=== PATIENT | female | born 1965 | race Caucasian/White ===

== ENCOUNTER → 2017-04-03 | Emergency (ER) | payer BC, OTHER ==
[~2017-04-03] VITALS: Ht 167.6 cm; Wt 127.0 kg
[2017-04-03 13:03] VITALS: BP 191/122
== END | disposition home or self-care (01) ==
LOC: ER 13:06
DX: H33.22 Serous retinal detachment, left eye (principal); I10 Essential (primary) hypertension
CPT/HCPCS: 99281; A4606; Z7610; Z7502

== ENCOUNTER 2017-07-19 16:20 | Inpatient (IN) | payer BC, OTHER ==
[~2017-07-19] VITALS: Ht 167.6 cm; Wt 130.6 kg
[2017-07-19 16:40] LABS: BASOPHILS # (AUTO) 0.1 /CMM (0.0-0.2); BASOPHILS % (AUTO) 1.2 % (0.0-2.0); EOSINOPHILS % (AUTO) 1.6 % (0.0-6.0); HEMATOCRIT 40 % (33-45); HEMOGLOBIN 13.5 g/dL (11.5-14.8); LYMPHOCYTES # (AUTO) 2.3 /CMM (0.8-4.8); LYMPHOCYTES % (AUTO) 19.8 % (20.0-44.0); MEAN CORPUSCULAR HGB CONC 33 g/dl (31.0-36.0); MEAN CORPUSCULAR VOLUME 82 fL (82-100); MONOCYTES # (AUTO) 0.7 /CMM (0.1-1.30); MONOCYTES % (AUTO) 6.4 % (2.0-12.0); NEUTROPHILS # (AUTO) 8.2 /CMM (1.8-8.9); PLATELET COUNT (AUTO) 325 /CMM (150-450); RDW COEFFICIENT OF VARIATION 14.3 (11.5-15.0); RED BLOOD CELL COUNT(AUTO) 4.92 MIL/uL (4.0-5.2); WHITE BLOOD COUNT (AUTO) 11.5 K/uL (4.3-11.0)
[2017-07-19] MEDS ORDERED: NITROGLYCERIN PACKET 1 GM PACKET ONE (16:40)
[2017-07-19] MEDS ORDERED: ASPIRIN 81 MG TAB.CHEW ONE (16:40)
[2017-07-19] MEDS ORDERED: METOPROLOL TARTRATE 50 MG TABLET ONE (16:40)
[2017-07-19] MEDS ORDERED: ASPIRIN 325 MG TABLET ONE (16:42)
[2017-07-19 16:50] LABS: CARBON DIOXIDE 24 mmol/L (21-32); CHLORIDE 104 mmol/L (98-107); CREATININE 0.7 mg/dL (0.6-1.3); GLUCOSE 125 mg/dL (74-106); POTASSIUM 3.7 mmol/L (3.5-5.1); SODIUM SERUM 135 mmol/L (136-145); UREA NITROGEN, BLOOD 9 mg/dL (7-18)
[2017-07-19 16:54] LABS: INR 0.91 (0.85-1.15)
[2017-07-19 16:59] LABS: TROPONIN I < 0.017 ng/mL (0.00-0.056)
[2017-07-19] MEDS ORDERED: NITROGLYCERIN PACKET 1 GM PACKET TD ONE (17:00)
[2017-07-19] MEDS ORDERED: METOPROLOL TARTRATE 25 MG TABLET PO ONE (17:00)
[2017-07-19] MEDS ORDERED: ASPIRIN 325 MG TABLET PO ONE (17:00)
[2017-07-19] MEDS ORDERED: ONDANSETRON HCL/PF 4 MG/2 ML VIAL ONE (17:42)
[2017-07-19] MEDS ORDERED: MORPHINE SULFATE INJ 4 MG/ML DISP.SYRIN ONE (17:43)
[2017-07-19] MEDS ORDERED: IOHEXOL-350 100 ML VIAL IV ONE (17:50)
[2017-07-19] MEDS ORDERED: MORPHINE SULFATE INJ 2 MG/ML DISP.SYRIN IV ONE (18:00)
[2017-07-19] MEDS ORDERED: ONDANSETRON HCL/PF 4 MG/2 ML VIAL IVP ONE (18:00)
[2017-07-19] MEDS ORDERED: FERR325T24 PO (18:17)
[2017-07-19] MEDS ORDERED: LOSA100T15 PO (18:17)
--- NOTE | 2017-07-19 18:27 | NUR ---
WAITING FOR TELE BED
--- NOTE | 2017-07-19 18:50 | NUR ---
GOT TELE BED 316-2 [facility] PAGED
--- NOTE | 2017-07-19 19:04 | NUR ---
RECEIVED REPORT FROM MAYTE WATERS FOR ALESSANDRA.
--- NOTE | 2017-07-19 19:24 | NUR ---
PER [facility] WILL PAGE DR. ARSEN HAHN
--- NOTE | 2017-07-19 19:33 | NUR ---
DR. LEZAAM SPEAKING TO DR. ARSEN HAHN REGARDING ADMISSION
[2017-07-19 20:00] VITALS: BP 166/87
[2017-07-19 20:25] VITALS: BP 166/87
--- NOTE | 2017-07-19 20:25 | NUR ---
RN ADMITTING TELE NOTES RECEIVED PATIENT AWAKE ALERT AND ORIENTED X4 , VERBALLY RESPONSIVE, RESPIRATIONS EVEN AND UNLABORED WITH EQUAL RISE AND FALL OF CHEST, DENIES ANY SHORTNESS OF BREATH AT THIS TIME, PATIENT AMBULATORY WITH STAND BY ASSIST , PATIENT IN BED SAFE, DENIES ANY PAIN OF DISCOMFORT AT THIS TIME, RIGHT HAND IV SITE, INTACT AND PATENT, NO REDNESS , NO INFILTRATION PRESENT, BELONGINGS CHECKED, BODY ASSESSMENT DONE, SKIN INTACT, PATIENT PLACED ON STATISTICAL TYPIST SR AT 68, ORIENTED TO ROOM ,STAFF AND CALL LIGHT, CALL LIGHT KEPT WITHIN REACH, ALL NEEDS ATTENDED AT THIS TIME, WILL CONTINUE TO MONITOR, MD AWARE OF ADMISSION AWAITING ORDERS TO NOTE AND CARRY OUT.
[2017-07-19] MEDS ORDERED: IV NS 0.9% 1,000 ML IV PRN (21:26)
[2017-07-19] MEDS ORDERED: ONDANSETRON HCL/PF 4 MG/2 ML VIAL IVP PRN (21:30)
[2017-07-19] MEDS ORDERED: ZOLPIDEM TARTRATE 5 MG TABLET PO PRN (21:30)
[2017-07-19] MEDS ORDERED: HYDROCODONE/APAP 10/325MG 1 EA TABLET PO PRN (21:30)
[2017-07-19] MEDS ORDERED: HYDROCODONE/APAP 5/325MG 1 EACH TABLET PO PRN (21:30)
[2017-07-19] MEDS ORDERED: MAG HYDROX/AL HYDROX/SIMETH 30 ML UDC PO PRN (21:30)
[2017-07-19] MEDS ORDERED: MAGNESIUM HYDROXIDE 30 ML UDC PO PRN (21:30)
[2017-07-19] MEDS ORDERED: Z GUARD REMEDY 2 OZ OINT TP PRN (21:30)
[2017-07-19] MEDS: ACETAMINOPHEN 325 MG TABLET PO PRN (22:08)
--- NOTE | 2017-07-19 22:08 | NUR ---
EXTRUDER NOTES PATIENT C/O HEADACHE 6/10 TYLENOL OFFERED, AGREED TO TAKE, PRN GIVEN ORDERED. PATIENT C/O FEELING NAUSEA, PRN ZOFRAN OFFERED AND GIVEN ORDERED. WILL CONTINUE TO MONITOR.
[2017-07-19] MEDS: ENOXAPARIN SODIUM 40 MG/0.4 ML DISP.SYRIN SQ SCH (22:13)
[2017-07-19] MEDS ORDERED: hydrALAZINE HCL IV 20 MG VIAL IV PRN (23:30)
[2017-07-20] VITALS: BP 145/64
[2017-07-20] MEDS ORDERED: NITROGLYCERIN 0.4 MG/TAB BOTTLE SL PRN
[2017-07-20 04:00] VITALS: BP 121/71
[2017-07-20 06:27] LABS: BASOPHILS % (AUTO) 0.3 % (0.0-2.0); EOSINOPHILS % (AUTO) 2.1 % (0.0-6.0); HEMATOCRIT 36 % (33-45); HEMOGLOBIN 12.2 g/dL (11.5-14.8); LYMPHOCYTES # (AUTO) 2.3 /CMM (0.8-4.8); LYMPHOCYTES % (AUTO) 24.6 % (20.0-44.0); MEAN CORPUSCULAR HGB CONC 34 g/dl (31.0-36.0); MEAN CORPUSCULAR VOLUME 82 fL (82-100); MONOCYTES # (AUTO) 0.7 /CMM (0.1-1.30); MONOCYTES % (AUTO) 7.4 % (2.0-12.0); NEUTROPHILS % (AUTO) 65.6 % (43.0-81.0); PLATELET COUNT (AUTO) 278 /CMM (150-450); RDW COEFFICIENT OF VARIATION 15.3 (11.5-15.0); RED BLOOD CELL COUNT(AUTO) 4.36 MIL/uL (4.0-5.2); WHITE BLOOD COUNT (AUTO) 9.2 K/uL (4.3-11.0)
--- NOTE | 2017-07-20 06:32 | NUR ---
RN CLOSING TELE NOTES PATIENT AWAKE ALERT AND ORIENTED X4 , VERBALLY RESPONSIVE, RESPIRATIONS EVEN AND UNLABORED WITH EQUAL RISE AND FALL OF CHEST, DENIES ANY SHORTNESS OF BREATH AT THIS TIME, PATIENT AMBULATORY WITH STAND BY ASSIST , PATIENT IN BED SAFE, DENIES ANY PAIN OF DISCOMFORT AT THIS TIME, PATIENT MADE AWARE IF SHE HAS CHEST PAIN WE CAN PROVIDE NITRO ORDERED, PATIENT UNDERSTANDS NONE NEEDED AT THIS TIME,RIGHT HAND IV SITE, INTACT AND PATENT, NO REDNESS , NO INFILTRATION PRESENT, IVF FLUIDS RUNNING ORDERED, ON ART MUSEUM AIDE SR AT 63,CALL LIGHT KEPT WITHIN REACH, ALL NEEDS ATTENDED AT THIS TIME, WILL CONTINUE TO MONITOR AND ENDORSE TO NEXT SHIFT.
[2017-07-20] MEDS: PANTOPRAZOLE 40 MG TABLET.DR PO SCH (06:41)
[2017-07-20 06:56] LABS: ALBUMIN 2.6 g/dL (3.4-5.0); BILIRUBIN,TOTAL 0.2 mg/dL (0.2-1.0); CALCIUM, SERUM 8.3 mg/dL (8.5-10.1); CREATININE 0.7 mg/dL (0.6-1.3); MAGNESIUM 1.8 mg/dL (1.8-2.4); PHOSPHORUS 3.9 mg/dL (2.5-4.9); POTASSIUM 4.1 mmol/L (3.5-5.1); TOTAL PROTEIN, SERUM 6.8 g/dL (6.4-8.2)
[2017-07-20 07:07] LABS: THYROID STIMULATING HORMONE 2.834 uIU/mL (0.358-3.74)
[2017-07-20 07:54] VITALS: BP 133/77
--- NOTE | 2017-07-20 08:00 | NUR ---
Tele/RN - Assessment Patient awake, A/O x 4, denies chest pain, no evidence of resp distress noted, tele shows SR, troponin x 3 were all negative. IVF NS at 75 ml/hr infusing well on the right hand with no s/s of infiltration. Skin is intact. Patient independent with bed mobility. All needs attended and met. Safety measures in place. Awaiting for cardio and neuro consult. Will continue with current plan of care.
--- NOTE | 2017-07-20 08:20 | NUR ---
Tele/RN - Md Castillo (Cardio) Seen and examined by Dr. Mazariegos with order for lexiscan stress test today. Patient was placed on NPO since midnight. Consent for lexiscan stress test signed by the patient.
[2017-07-20] MEDS: ASPIRIN 325 MG TABLET PO SCH (08:31)
[2017-07-20] MEDS: FERROUS SULFATE (325 MG) 325 MG/TAB TABLET PO SCH (08:31)
[2017-07-20] MEDS: METOPROLOL TARTRATE 25 MG TABLET PO SCH ×2 (08:31→14:40)
[2017-07-20] MEDS ORDERED: Medication Not On Formulary EA (Losartan Potassium 100 MG) PO SCH (09:00)
[2017-07-20] MEDS ORDERED: REGADENOSON 0.4 MG/5 ML DISP.SYRIN IVP ONE (11:17)
--- NOTE | 2017-07-20 14:00 | NUR ---
M/S RN - Notes Telemetry discontinued, Lexiscan stress test completed, per Dr. Mazariegos, if stress test is negative cleared for discharge home today. Patient and updated on discharge plan.
[2017-07-20] MEDS: ACETAMINOPHEN 325 MG TABLET PO PRN (14:37)
[2017-07-20 16:57] VITALS: BP 150/83
--- NOTE | 2017-07-20 17:47 | NUR ---
M/S RN CLOSING NOTES Patient in bed, resting comfortably. A&O x4. Family member at bedside. No complaints of pain at this moment. Not in any type of distress. No SOB noted. No chest pain noted or reported. Lexiscan stress test was negative. CT Head w/o contrast is normal. Possible discharge home tomorrow if continues to remain stable. Safety measures in place. Bed in lowest position with call light within reach. Will continue with current medical management and endorse to oncoming nurse.
--- NOTE | 2017-07-20 19:30 | NUR ---
RN NOTES RECEIVED PT. AWAKE ON BED, A/OX4, AMBULATORY, DENIES PAIN, NO SOB, WAITING FOR DR. HOLLIS FRIED TO BE DISCHARGE. CALL LIGHT WITHIN REACH, [id number], WILL CONTINUE TO MONITOR
[2017-07-20 20:00] VITALS: BP 141/80
[2017-07-20] MEDS: ENOXAPARIN SODIUM 40 MG/0.4 ML DISP.SYRIN SQ SCH (21:39)
[2017-07-20] MEDS ORDERED: ATORVASTATIN 40 MG TABLET PO SCH (22:00)
--- NOTE | 2017-07-21 06:25 | NUR ---
RN NOTES SLEEPING BUT AROUSABLE, DENIES PAIN, NO SOB, MORNING CARE RENDERED, PT. NEEDS ATTENDED
[2017-07-21 08:00] VITALS: BP_SYST 117; BP_SYST 155; BP_DIAS 82; BP_DIAS 83
--- NOTE | 2017-07-21 08:00 | NUR ---
RN NOTES RECEIVED PATIENT IN THE BED A/O X4, PATIENT STABLE, NO ACTE RESPIRATORY DISTRESS, NO COMPLAINING OF CHEST PAIN. V/S TAKEN AND FOLLOWED AT. PATIENT TAKE SCHEDULED MEDICATION. PATIENT AMBULATORY SELF CARE. IV ACCESS ON RIGHT FA INTACT. NEEDS ATTENDED ADD ANTICIPATED, CALL LIGHT WITHIN TO REACH. JUAN UED MONITORING.
[2017-07-21] MEDS: ASPIRIN 325 MG TABLET PO SCH (08:14)
[2017-07-21] MEDS: PANTOPRAZOLE 40 MG TABLET.DR PO SCH (08:14)
[2017-07-21] MEDS: METOPROLOL TARTRATE 25 MG TABLET PO SCH (08:15)
[2017-07-21] MEDS: FERROUS SULFATE (325 MG) 325 MG/TAB TABLET PO SCH (08:15)
[2017-07-21 08:17] VITALS: BP 155/83
[2017-07-21] MEDS ORDERED: VALSARTAN 80 MG TABLET PO SCH (09:00)
--- NOTE | 2017-07-21 09:30 | NUR ---
RN NOTES RECHECKED V/S BP - 133/ 72, P-68, NO ACUTE DISTRESS. PATIENT WILL D/C HOME PER CHEN FRIED. CONTINUED MONITORING.
--- NOTE | 2017-07-21 13:58 | NUR ---
DISCHARGE NOTES PATIENT DISCHARGE AT THIS TIME GOING HOME. PATIENT MED COMPLIANT, NO COMPLAINING OF PAIN, MEDICALLY STABLE. IV ACCESS REMOVE, D/C EDUCATION PROVIDED TO THE PATIENT. PATIENT WILL FOLLOW PRIMARY MD. PATIENT VERBALIZED UNDERSTANDING. PATIENT HAS HER BELONGING, PAPERWORK SIGNED. 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
== END 2017-07-21 13:46 | disposition home or self-care (01) | DRG 205 ==
LOC: ER 16:22 → TELE 19:52 → MED 07-20 13:17
PROVIDERS: ADMIT Hospitalist; ATTEND Hospitalist
DX: M94.0 Chondrocostal junction syndrome [Tietze] (principal); E43 Unspecified severe protein-calorie malnutrition; E87.1 Hypo-osmolality and hyponatremia; Z68.42 Body mass index [BMI] 45.0-49.9, adult; E66.01 Morbid (severe) obesity due to excess calories; D72.829 Elevated white blood cell count, unspecified; E83.51 Hypocalcemia; I10 Essential (primary) hypertension; Z91.14 Patient's other noncompliance with medication regimen; Z90.49 Acquired absence of other specified parts of digestive tract; R73.9 Hyperglycemia, unspecified; G47.33 Obstructive sleep apnea (adult) (pediatric); R20.0 Anesthesia of skin; M54.12 Radiculopathy, cervical region; Z98.51 Tubal ligation status
CPT/HCPCS: 36415; 70450-TC; 71045-TC; 80048-TC; 80053-TC; 80061-TC; 80305; 82306; 82728-TC; 83540-TC; 83735-TC; 84100-TC; 84439-TC; 84443-TC; 84484-TC; 85025-TC; 85730-TC; 87081-TC; 93307-TC; A4606; A9502; J1650; J2270; J2405; J2785; J7030; Q9967; Z7610

== ENCOUNTER 2017-07-31 13:07 | Outpatient (CLI) | payer BC ==
[~2017-07-31 13:07] MED LIST: FERR325T24 PO; LOSA100T15 PO
[2017-07-31 13:16] VITALS: BP 131/81
== END 2017-07-31 23:59 | disposition home or self-care (01) ==
LOC: MSC 13:07
PROVIDERS: ATTEND Internal Medicine
DX: M54.12 Radiculopathy, cervical region (principal); R07.89 Other chest pain; E66.01 Morbid (severe) obesity due to excess calories; I10 Essential (primary) hypertension; R73.03 Prediabetes; E44.0 Moderate protein-calorie malnutrition; E88.09 Other disorders of plasma-protein metabolism, not elsewhere classified; Z90.49 Acquired absence of other specified parts of digestive tract; Z98.51 Tubal ligation status

== ENCOUNTER 2017-11-02 13:24 | Outpatient (CLI) | payer OTHER ==
[2017-11-02 13:55] VITALS: BP 162/96
== END 2017-11-02 23:59 | disposition home or self-care (01) ==
LOC: MSC 13:24
PROVIDERS: ATTEND Internal Medicine
DX: F07.81 Postconcussional syndrome (principal); S40.012D Contusion of left shoulder, subsequent encounter; S80.02XD Contusion of left knee, subsequent encounter; W19.XXXD Unspecified fall, subsequent encounter; R26.2 Difficulty in walking, not elsewhere classified; E66.01 Morbid (severe) obesity due to excess calories; I10 Essential (primary) hypertension

== ENCOUNTER 2018-11-01 15:26 | Emergency (ER) | payer BC, OTHER ==
[~2018-11-01] VITALS: Ht 170.2 cm; Wt 131.5 kg
[~2018-11-01 15:26] MED LIST changes: -LOSA100T15 PO; +LOSA100T31 PO
--- NOTE | 2018-11-01 15:45 | NUR ---
PT PRESENTS TO ER C/O CHEST PAIN/PRESSURE WITH HYPERTENSION AND SOB. 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 RESP SLIGHTLY LABORED. PT APPEARS FLUSHED BUT SKIN WARM DRY. 7/10 PAIN. TOOK ROUTINE LOSARTAN AT 1100. IN ER BED 08 ON MONITOR.
[2018-11-01] MEDS ORDERED: ONDANSETRON HCL/PF 4 MG/2 ML VIAL ONE (15:46)
[2018-11-01] MEDS ORDERED: LABETALOL HCL IV 100MG VIAL ONE (15:46)
[2018-11-01] MEDS ORDERED: ASPIRIN 81 MG TAB.CHEW ONE (15:47)
[2018-11-01 15:49] LABS: BASOPHILS # (AUTO) 0.1 /CMM (0.0-0.2); BASOPHILS % (AUTO) 0.7 % (0.0-2.0); EOSINOPHILS % (AUTO) 2.6 % (0.0-6.0); HEMATOCRIT 42 % (33-45); HEMOGLOBIN 13.7 g/dL (11.5-14.8); LYMPHOCYTES # (AUTO) 2.6 /CMM (0.8-4.8); LYMPHOCYTES % (AUTO) 30.6 % (20.0-44.0); MEAN CORPUSCULAR HGB CONC 33 g/dl (31.0-36.0); MEAN CORPUSCULAR VOLUME 83 fL (82-100); MONOCYTES # (AUTO) 0.7 /CMM (0.1-1.30); MONOCYTES % (AUTO) 7.8 % (2.0-12.0); NEUTROPHILS # (AUTO) 4.9 /CMM (1.8-8.9); NEUTROPHILS % (AUTO) 58.3 % (43.0-81.0); PLATELET COUNT (AUTO) 315 /CMM (150-450); RED BLOOD CELL COUNT(AUTO) 5.05 MIL/uL (4.0-5.2); WHITE BLOOD COUNT (AUTO) 8.4 K/uL (4.3-11.0)
[2018-11-01 15:56] LABS: CALCIUM, SERUM 8.8 mg/dL (8.5-10.1); CARBON DIOXIDE 25 mmol/L (21-32); CHLORIDE 105 mmol/L (98-107); CREATININE 0.7 mg/dL (0.6-1.3); GLUCOSE 134 mg/dL (74-106); POTASSIUM 3.7 mmol/L (3.5-5.1); SODIUM SERUM 141 mmol/L (136-145); UREA NITROGEN, BLOOD 9 mg/dL (7-18)
[2018-11-01] MEDS ORDERED: LABETALOL HCL IV 100MG VIAL IV ONE (16:00)
[2018-11-01] MEDS ORDERED: ASPIRIN 81 MG TAB.CHEW PO ONE (16:00)
[2018-11-01] MEDS ORDERED: ONDANSETRON HCL/PF 4 MG/2 ML VIAL IVP ONE (16:00)
--- NOTE | 2018-11-01 17:28 | NUR ---
CALLED DR ALLRED
--- NOTE | 2018-11-01 18:19 | NUR ---
RESTING COMFORTABLY. ALL NEEDS ATTENDED TO.
--- NOTE | 2018-11-01 19:16 | NUR ---
REPORT GIVEN TO MARLENE HU FOR ALESSANDRA. REPEAT TROPONIN DRAWN.
--- NOTE | 2018-11-01 19:18 | NUR ---
PT RECEIVED FROM MAYTE MEZA FOR ALESSANDRA. PT IN BED AAOX4. NO RESP DISTRESS. LAB AT BEDSIDE FOR REPEAT TROPONIN DRAW.
[2018-11-01 20:55] VITALS: BP 150/75
--- NOTE | 2018-11-01 20:55 | NUR ---
Patient discharged to home in stable condition. Written and verbal after care instructions given. Patient verbalizes understanding of instruction.IV removed. Catheter intact and site benign. Pressure and 4x4 applied to site. No bleeding noted. Pt ambulatory with a steady gait
== END 2018-11-01 20:35 | disposition home or self-care (01) ==
LOC: ER 15:27
DX: R07.89 Other chest pain (principal); I10 Essential (primary) hypertension; R42 Dizziness and giddiness; E66.01 Morbid (severe) obesity due to excess calories; Z68.42 Body mass index [BMI] 45.0-49.9, adult; Z98.890 Other specified postprocedural states; Z90.49 Acquired absence of other specified parts of digestive tract; Z98.51 Tubal ligation status
CPT/HCPCS: 36415; 71045; 80048; 84484 ×2; 85025; 93005 ×2; 96374; 96375; 99284; J2405; J3490

== ENCOUNTER 2020-01-10 07:30 | Outpatient (CLI) | payer BC, OTHER ==
[~2020-01-10 07:30] MED LIST changes: -FERR325T24 PO
[2020-01-10 09:46] LABS: ALBUMIN 3.3 g/dL (3.4-5.0); BASOPHILS % (AUTO) 0.4 % (0.0-2.0); BILIRUBIN,TOTAL 0.2 mg/dL (0.2-1.0); CALCIUM, SERUM 8.9 mg/dL (8.5-10.1); CREATININE 0.7 mg/dL (0.6-1.3); EOSINOPHILS % (AUTO) 1.9 % (0.0-6.0); HEMATOCRIT 44 % (33-45); HEMOGLOBIN 14.1 g/dL (11.5-14.8); LYMPHOCYTES # (AUTO) 2.2 /CMM (0.8-4.8); LYMPHOCYTES % (AUTO) 28.7 % (20.0-44.0); MEAN CORPUSCULAR HGB CONC 32 g/dl (31.0-36.0); MEAN CORPUSCULAR VOLUME 86 fL (82-100); MONOCYTES # (AUTO) 0.6 /CMM (0.1-1.30); MONOCYTES % (AUTO) 7.4 % (2.0-12.0); NEUTROPHILS # (AUTO) 4.7 /CMM (1.8-8.9); NEUTROPHILS % (AUTO) 61.6 % (43.0-81.0); PLATELET COUNT (AUTO) 302 /CMM (150-450); POTASSIUM 3.9 mmol/L (3.5-5.1); RED BLOOD CELL COUNT(AUTO) 5.15 MIL/uL (4.0-5.2); TOTAL PROTEIN, SERUM 8.3 g/dL (6.4-8.2); WHITE BLOOD COUNT (AUTO) 7.7 K/uL (4.3-11.0)
[2020-01-10 09:57] LABS: FREE T4 (FREE THYROXINE) 1.06 ng/dL (0.76-1.46); THYROID STIMULATING HORMONE 2.277 uIU/mL (0.358-3.74)
[2020-01-10 11:05] LABS: BILIRUBIN,URINE NEGATIVE (NEGATIVE); BLOOD, URINE NEGATIVE Ery/uL (NEGATIVE); LEUKOCYTE ESTERASE ,URINE NEGATIVE (NEGATIVE); NITRITE, URINE POSITIVE (NEGATIVE); PH,URINE 5.5 (5.0-8.0); PROTEIN,URINE NEGATIVE (NEGATIVE); UGLUCOSE NEGATIVE (NEGATIVE); UROBILINOGEN,URINE 0.2 EU/dL (0.2)
[2020-01-10 11:07] LABS: COLOR,URINE YELLOW (YELLOW)
[2020-01-10 11:37] LABS: BACTERIA,URINE Few /HPF (None Seen); RBC,URINE NONE SEEN /HPF (0-2); SQUAMOUS EPITHELIAL CELL,UR Few /HPF (None Seen); WBC,URINE 0-2 /HPF (0-3)
== END 2020-01-10 23:59 | disposition home or self-care (01) ==
LOC: LAB 07:30
PROVIDERS: ATTEND Family Medicine
DX: R22.0 Localized swelling, mass and lump, head (principal); Z00.01 Encounter for general adult medical examination with abnormal findings
CPT/HCPCS: 36415; 70250-TC; 80053-TC; 80061-TC; 81001; 82306; 84439-TC; 84443-TC; 85025-TC; 86803; 87086-TC

== ENCOUNTER 2020-03-04 07:33 | Outpatient (CLI) | payer BC, OTHER | END 2020-03-04 23:59 | disposition home or self-care (01) | LOC: CT 07:33 | PROVIDERS: ATTEND Family Medicine | DX: P13.1 Other birth injuries to skull (principal) | CPT/HCPCS: 70450-TC ==

== ENCOUNTER 2021-05-06 07:17 | Emergency (ER) | payer BC, OTHER ==
[~2021-05-06] VITALS: Ht 170.2 cm; Wt 113.4 kg
[2021-05-06 07:27] VITALS: BP 129/84
--- NOTE | 2021-05-06 07:41 | NUR ---
AT BEDSIDE FOR EVAL.
[2021-05-06] MEDS ORDERED: AMOX-430 PO (08:11)
--- NOTE | 2021-05-06 08:19 | NUR ---
Patient discharged to home in stable condition. Written and verbal after care instructions given. Patient verbalizes understanding of instruction.
== END 2021-05-06 08:21 | disposition home or self-care (01) ==
LOC: ER 07:24
DX: J32.1 Chronic frontal sinusitis (principal); J06.9 Acute upper respiratory infection, unspecified; I10 Essential (primary) hypertension; Z90.49 Acquired absence of other specified parts of digestive tract; Z98.890 Other specified postprocedural states; Z79.899 Other long term (current) drug therapy

== ENCOUNTER 2022-03-17 15:03 | Emergency (ER) | payer BC, OTHER ==
[~2022-03-17] VITALS: Ht 170.2 cm; Wt 147.4 kg
[~2022-03-17 15:03] MED LIST changes: +AMOX-430 PO
--- NOTE | 2022-03-17 15:11 | NUR ---
BIBS STATING THAT WHILE AT WORK SHE WAS REGISTERRING A PT AND LOST CONTROL OF HER R HAND AND DIEGO NUMBED. PT ATTACHED TO MONITOR, NO RESPIRATORY DISTRESS NOTED. PT CURRENTLY HAS NO SIGNIFICANT DRIFT IN EXTREMITIES, OR FACIAL DROOP. AWAITING MD EDWARDS.
[2022-03-17] MEDS ORDERED: ACETAMINOPHEN ES 500 MG TABLET PO ONE (15:30)
[2022-03-17] MEDS ORDERED: IV NS 0.9% 1,000 ML BAG IV ONE (15:30)
[2022-03-17 15:38] LABS: BASOPHILS % (AUTO) 0.2 % (0.0-2.0); HEMATOCRIT 45 % (33-45); HEMOGLOBIN 14.5 g/dL (11.5-14.8); LYMPHOCYTES # (AUTO) 3.5 K/uL (0.8-4.8); LYMPHOCYTES % (AUTO) 33.9 % (20.0-44.0); MEAN CORPUSCULAR HGB CONC 33 g/dl (31.0-36.0); MEAN CORPUSCULAR VOLUME 85 fL (82-100); MONOCYTES # (AUTO) 0.9 K/uL (0.1-1.30); MONOCYTES % (AUTO) 8.8 % (2.0-12.0); NEUTROPHILS # (AUTO) 5.8 K/uL (1.8-8.9); NEUTROPHILS % (AUTO) 55.1 % (43.0-81.0); PLATELET COUNT (AUTO) 331 K/uL (150-450); RED BLOOD CELL COUNT(AUTO) 5.24 MIL/uL (4.0-5.2); WHITE BLOOD COUNT (AUTO) 10.5 K/uL (4.3-11.0)
[2022-03-17 15:59] LABS: ALANINE AMINOTRANSFERASE 36 U/L (12-78); ALBUMIN 3.4 g/dL (3.4-5.0); ALKALINE PHOSPHATASE 124 U/L (46-116); ASPARTATE AMINOTRANSFERASE 29 U/L (15-37); BILIRUBIN,DIRECT 0.1 mg/dL (0.0-0.2); BILIRUBIN,TOTAL 0.3 mg/dL (0.2-1.0); CALCIUM, SERUM 8.8 mg/dL (8.5-10.1); CARBON DIOXIDE 27 mmol/L (21-32); CHLORIDE 104 mmol/L (98-107); CREATININE 0.8 mg/dL (0.6-1.3); GLUCOSE 81 mg/dL (74-106); LIPASE 178 U/L (73-393); POTASSIUM 3.5 mmol/L (3.5-5.1); SODIUM SERUM 140 mmol/L (136-145); TOTAL PROTEIN, SERUM 8.4 g/dL (6.4-8.2); UREA NITROGEN, BLOOD 9 mg/dL (7-18)
[2022-03-17 16:56] VITALS: BP 174/94
--- NOTE | 2022-03-17 16:56 | NUR ---
IV removed. Catheter intact and site benign. Pressure and 4x4 applied to site. No bleeding noted.Patient discharged to home in stable condition. Written and verbal after care instructions given. Patient verbalizes understanding of instruction.
[2022-03-17] MEDS ORDERED: ACETAMINOPHEN ES 500 MG TABLET ONE (21:48)
== END 2022-03-17 16:56 | disposition home or self-care (01) ==
LOC: ER 15:05
DX: R20.2 Paresthesia of skin (principal); I10 Essential (primary) hypertension; Z90.49 Acquired absence of other specified parts of digestive tract
CPT/HCPCS: 36415; 70450-TC; 71045-TC; 80048-TC; 80076-TC; 82962-TC; 83690-TC; 84484-TC; 85025-TC

== ENCOUNTER → 2022-03-30 | Outpatient (CLI) | payer BC, OTHER | END | disposition home or self-care (01) | LOC: RAD 08:46 | PROVIDERS: ATTEND Family Medicine | DX: M19.021 Primary osteoarthritis, right elbow (principal); M25.521 Pain in right elbow | CPT/HCPCS: 73080-TC ==

== ENCOUNTER 2022-08-03 07:36 | Outpatient (CLI) | payer BC, OTHER ==
[2022-08-03 09:36] LABS: BASOPHILS % (AUTO) 0.5 % (0.0-2.0); BILIRUBIN,URINE NEGATIVE (NEGATIVE); COLOR,URINE YELLOW (YELLOW); EOSINOPHILS % (AUTO) 2.1 % (0.0-6.0); HEMATOCRIT 44 % (33-45); HEMOGLOBIN 14.2 g/dL (11.5-14.8); LEUKOCYTE ESTERASE ,URINE NEGATIVE (NEGATIVE); LYMPHOCYTES # (AUTO) 2.1 K/uL (0.8-4.8); LYMPHOCYTES % (AUTO) 29.9 % (20.0-44.0); MEAN CORPUSCULAR HGB CONC 32 g/dl (31.0-36.0); MEAN CORPUSCULAR VOLUME 86 fL (82-100); MONOCYTES # (AUTO) 0.5 K/uL (0.1-1.30); MONOCYTES % (AUTO) 6.6 % (2.0-12.0); NEUTROPHILS # (AUTO) 4.3 K/uL (1.8-8.9); NEUTROPHILS % (AUTO) 60.9 % (43.0-81.0); NITRITE, URINE POSITIVE (NEGATIVE); PLATELET COUNT (AUTO) 296 K/uL (150-450); PROTEIN,URINE NEGATIVE (NEGATIVE); RED BLOOD CELL COUNT(AUTO) 5.11 MIL/uL (4.0-5.2); UGLUCOSE NEGATIVE (NEGATIVE); UROBILINOGEN,URINE 0.2 EU/dL (0.2)
[2022-08-03 09:57] LABS: BACTERIA,URINE Moderate /HPF (None Seen); RBC,URINE 0-2 /HPF (0-2); SQUAMOUS EPITHELIAL CELL,UR Few /HPF (None Seen)
[2022-08-03 10:21] LABS: FREE T4 (FREE THYROXINE) 1.06 ng/dL (0.76-1.46); THYROID STIMULATING HORMONE 2.407 uIU/mL (0.358-3.74); URIC ACID 3.7 mg/dL (2.6-7.2)
[2022-08-03 10:28] LABS: ALBUMIN 3.5 g/dL (3.4-5.0); BILIRUBIN,TOTAL 0.3 mg/dL (0.2-1.0); CREATININE 0.7 mg/dL (0.6-1.3); MAGNESIUM 1.9 mg/dL (1.8-2.4); POTASSIUM 3.7 mmol/L (3.5-5.1); TOTAL PROTEIN, SERUM 8.3 g/dL (6.4-8.2)
== END 2022-08-03 23:59 | disposition home or self-care (01) ==
LOC: CARD 07:36
PROVIDERS: ATTEND Family Medicine
DX: M79.604 Pain in right leg (principal); M79.605 Pain in left leg; R79.9 Abnormal finding of blood chemistry, unspecified; I10 Essential (primary) hypertension
CPT/HCPCS: 36415; 80053-TC; 80061-TC; 81001; 82306; 82607-TC; 82728-TC; 83540-TC; 83735-TC; 84439-TC; 84443-TC; 84481; 84550-TC; 85025-TC; 87086-TC; 93970-TC

== ENCOUNTER 2022-08-12 09:06 | Outpatient (CLI) | payer BC, OTHER ==
[2022-08-12 11:05] LABS: ALBUMIN 3.4 g/dL (3.4-5.0); BILIRUBIN,TOTAL 0.2 mg/dL (0.2-1.0); CALCIUM, SERUM 8.9 mg/dL (8.5-10.1); CREATININE 0.7 mg/dL (0.6-1.3); POTASSIUM 3.9 mmol/L (3.5-5.1); TOTAL PROTEIN, SERUM 7.8 g/dL (6.4-8.2)
== END 2022-08-12 23:59 | disposition home or self-care (01) ==
LOC: US 09:06
PROVIDERS: ATTEND Family Medicine
DX: K76.0 Fatty (change of) liver, not elsewhere classified (principal); R94.5 Abnormal results of liver function studies; R16.1 Splenomegaly, not elsewhere classified; R10.9 Unspecified abdominal pain; Z90.49 Acquired absence of other specified parts of digestive tract
CPT/HCPCS: 76700-TC; 80053-TC; 86709-TC; 87340

== ENCOUNTER 2023-08-07 15:53 | Emergency (ER) | payer BC, OTHER ==
[~2023-08-07] VITALS: Ht 172.7 cm; Wt 137.9 kg
[2023-08-07 15:54] VITALS: TEMP 98.4
[2023-08-07] MEDS ORDERED: ONDANSETRON HCL/PF 4 MG/2 ML VIAL ONE (16:26)
[2023-08-07] MEDS ORDERED: HYDROCORTISONE 2.5% CREAM 28.4 GM TUBE TP SCH (16:30)
[2023-08-07] MEDS: IV NS 0.9% 1,000 ML BAG IV ONE (16:40)
[2023-08-07] MEDS: ONDANSETRON HCL/PF 4 MG/2 ML VIAL IVP ONE (16:40)
[2023-08-07 16:58] LABS: BASOPHILS % (AUTO) 0.3 % (0.0-2.0); EOSINOPHILS # (AUTO) 0.2 K/uL (0.0-0.7); HEMATOCRIT 42 % (33-45); HEMOGLOBIN 13.8 g/dL (11.5-14.8); LYMPHOCYTES # (AUTO) 2.6 K/uL (0.8-4.8); LYMPHOCYTES % (AUTO) 27.4 % (20.0-44.0); MEAN CORPUSCULAR HEMOGLOBIN 29 PG (26.0-33.0); MEAN CORPUSCULAR HGB CONC 33 g/dl (31.0-36.0); MEAN CORPUSCULAR VOLUME 87 fL (82-100); MONOCYTES # (AUTO) 0.7 K/uL (0.1-1.30); MONOCYTES % (AUTO) 6.9 % (2.0-12.0); NEUTROPHILS % (AUTO) 63.4 % (43.0-81.0); PLATELET COUNT (AUTO) 292 K/uL (150-450); RED BLOOD CELL COUNT(AUTO) 4.85 MIL/uL (4.0-5.2); RED CELL DISTRIBUTION WIDTH 14.9 % (11.5-15.0); WHITE BLOOD COUNT (AUTO) 9.5 K/uL (4.3-11.0)
[2023-08-07] MEDS: HYDROCORTISONE 2.5% CREAM 28.4 GM TUBE TP SCH (17:00)
[2023-08-07 17:01] LABS: APPEARANCE,URINE CLEAR (CLEAR); BILIRUBIN,URINE 1+ (NEGATIVE); BLOOD, URINE 2+ Ery/uL (NEGATIVE); COLOR,URINE YELLOW (YELLOW); KETONES,URINE TRACE mg/dL (NEGATIVE); LEUKOCYTE ESTERASE ,URINE NEGATIVE (NEGATIVE); NITRITE, URINE NEGATIVE (NEGATIVE); PROTEIN,URINE TRACE mg/dl (NEGATIVE); UGLUCOSE NEGATIVE (NEGATIVE); UROBILINOGEN,URINE 0.2 EU/dL (0.2)
[2023-08-07 17:10] LABS: CALCIUM, SERUM 9.2 mg/dL (8.5-10.1); CREATININE 0.8 mg/dL (0.6-1.3); POTASSIUM 3.4 mmol/L (3.5-5.1)
[2023-08-07 17:20] LABS: ADD URINE CULTURE NO; BACTERIA,URINE 1+ /HPF (None Seen)
[2023-08-07 17:20] LABS: ALBUMIN 3.2 g/dL (3.4-5.0); BILIRUBIN,DIRECT 0.2 mg/dL (0.0-0.2); BILIRUBIN,TOTAL 0.3 mg/dL (0.2-1.0); TOTAL PROTEIN, SERUM 8.1 g/dL (6.4-8.2)
[2023-08-07] MEDS ORDERED: HYDR30CR99 RC (17:41)
[2023-08-07 17:51] VITALS: BP 140/83; O2SAT 100
== END 2023-08-07 17:49 | disposition home or self-care (01) ==
LOC: ER 15:57
DX: R19.7 Diarrhea, unspecified (principal); K62.89 Other specified diseases of anus and rectum; I10 Essential (primary) hypertension; Z90.49 Acquired absence of other specified parts of digestive tract
CPT/HCPCS: 99283; 96374; 96361; 85025; 80048; 83690; 80076; 81001; 36415; J2405; J7030

== ENCOUNTER 2023-08-18 06:07 | Day surgery (SDC) | payer BC, OTHER ==
[~2023-08-18 06:07] MED LIST changes: +HYDR30CR99 RC
[2023-08-18] MEDS ORDERED: LIDOCAINE 1% INJ 50 ML MDV IJ ONE (07:09)
[2023-08-18] MEDS ORDERED: SILVER NITRATE APPLICATOR 1 EA BOX ONE (07:09)
[2023-08-18] MEDS ORDERED: ANESTHESIA TRAY IN PYXIS 1 EA TRAY MC ONE (07:09)
[2023-08-18] MEDS ORDERED: MANNITOL 0 ML IV ONE (07:10)
[2023-08-18] MEDS ORDERED: ROCURONIUM BROMIDE 50 MG/5 ML ONE (07:27)
[2023-08-18] MEDS ORDERED: BUPIVACAINE MPF 0.5% W/EPI INJ 30 ML VIAL ONE ×2 (08:37)
[2023-08-18] MEDS ORDERED: FENTANYL PF 100MCG/2ML AMPUL ONE (09:18)
== END 2023-08-18 10:32 | disposition home or self-care (01) ==
LOC: DS 06:07
PROVIDERS: ATTEND Obstetrics & Gynecology
DX: N92.1 Excessive and frequent menstruation with irregular cycle (principal); K64.3 Fourth degree hemorrhoids; I10 Essential (primary) hypertension; E66.01 Morbid (severe) obesity due to excess calories; N85.8 Other specified noninflammatory disorders of uterus; Z98.890 Other specified postprocedural states; Z79.899 Other long term (current) drug therapy
CPT/HCPCS: 46083; 58558; A4217; A4338; J0461; J0690; J2704; J3010; J3490; J2150

== ENCOUNTER 2023-08-29 09:28 | Inpatient (IN) | payer BC, OTHER ==
[~2023-08-29] VITALS: Ht 170.2 cm; Wt 137.4 kg
[2023-08-29] MEDS ORDERED: BUPIVACAINE 0.5 % PF 150 MG/30 ML VIAL ONE (09:52)
[2023-08-29 10:29] LABS: BASOPHILS % (AUTO) 0.4 % (0.0-2.0); EOSINOPHILS # (AUTO) 0.2 K/uL (0.0-0.7); EOSINOPHILS % (AUTO) 2.2 % (0.0-6.0); HEMATOCRIT 37 % (33-45); LYMPHOCYTES # (AUTO) 2.7 K/uL (0.8-4.8); LYMPHOCYTES % (AUTO) 26.9 % (20.0-44.0); MEAN CORPUSCULAR HEMOGLOBIN 29 PG (26.0-33.0); MEAN CORPUSCULAR HGB CONC 33 g/dl (31.0-36.0); MEAN CORPUSCULAR VOLUME 87 fL (82-100); MONOCYTES # (AUTO) 0.8 K/uL (0.1-1.30); NEUTROPHILS # (AUTO) 6.3 K/uL (1.8-8.9); NEUTROPHILS % (AUTO) 62.5 % (43.0-81.0); PLATELET COUNT (AUTO) 123 K/uL (150-450); RED BLOOD CELL COUNT(AUTO) 4.18 MIL/uL (4.0-5.2); RED CELL DISTRIBUTION WIDTH 15.1 % (11.5-15.0)
[2023-08-29] MEDS ORDERED: ANESTHESIA TRAY IN PYXIS 1 EA TRAY MC ONE (10:41)
[2023-08-29 10:46] LABS: INR 1.03 (0.91-1.10); PARTIAL THROMBOPLASTIN TIME 30.1 SEC (24.3-34.3); PROTHROMBIN TIME 10.9 SECS (9.2-11.1)
[2023-08-29 11:00] LABS: ALBUMIN 3.1 g/dL (3.4-5.0); BILIRUBIN,TOTAL 0.4 mg/dL (0.2-1.0); CALCIUM, SERUM 9.4 mg/dL (8.5-10.1); CREATININE 0.8 mg/dL (0.6-1.3); POTASSIUM 3.6 mmol/L (3.5-5.1); TOTAL PROTEIN, SERUM 7.6 g/dL (6.4-8.2)
[2023-08-29] MEDS ORDERED: FENTANYL PF 100MCG/2ML AMPUL ONE (11:45)
[2023-08-29] MEDS ORDERED: MIDAZOLAM HCL 2 MG/2ML VIAL ONE (11:45)
[2023-08-29] MEDS ORDERED: HYDROMORPHONE INJ 2 MG/ML DISP.SYRIN ONE (11:45)
[2023-08-29] MEDS ORDERED: ROCURONIUM BROMIDE 50 MG/5 ML ONE (11:46)
[2023-08-29] MEDS ORDERED: LABETALOL HCL IV 100MG VIAL ONE (12:49)
[2023-08-29] MEDS ORDERED: HYDROMORPHONE 1 MG/1 ML DISP.SYRIN ONE (14:01)
[2023-08-29 14:41] VITALS: BP 126/69; TEMP 97.6; O2SAT 97
[2023-08-29] MEDS ORDERED: DOCU100C36 PO (14:53)
[2023-08-29] MEDS ORDERED: FERR325T21 PO (14:53)
[2023-08-29] MEDS ORDERED: ERGO500093 PO (14:53)
[2023-08-29] MEDS ORDERED: METO50TA16 PO (14:53)
[2023-08-29] MEDS ORDERED: ONDANSETRON HCL/PF 4 MG/2 ML VIAL IVP PRN (15:30)
[2023-08-29] MEDS ORDERED: MORPHINE SULFATE INJ 4 MG/ML DISP.SYRIN IV PRN (15:30)
[2023-08-29] MEDS: HYDROMORPHONE 1 MG/1 ML DISP.SYRIN IV PRN (15:57)
[2023-08-29] MEDS: ANCEF 1 GM/50 ML D5W IV SCH (19:44)
[2023-08-29 20:00] VITALS: BP 128/80; TEMP 97.9; O2SAT 95
[2023-08-29 21:32] LABS: BASOPHILS % (AUTO) 0.1 % (0.0-2.0); HEMATOCRIT 35 % (33-45); HEMOGLOBIN 11.3 g/dL (11.5-14.8); LYMPHOCYTES # (AUTO) 0.5 K/uL (0.8-4.8); LYMPHOCYTES % (AUTO) 3.4 % (20.0-44.0); MEAN CORPUSCULAR HEMOGLOBIN 28 PG (26.0-33.0); MEAN CORPUSCULAR HGB CONC 33 g/dl (31.0-36.0); MEAN CORPUSCULAR VOLUME 87 fL (82-100); MONOCYTES # (AUTO) 0.4 K/uL (0.1-1.30); MONOCYTES % (AUTO) 2.9 % (2.0-12.0); NEUTROPHILS # (AUTO) 13.6 K/uL (1.8-8.9); NEUTROPHILS % (AUTO) 93.6 % (43.0-81.0); PLATELET COUNT (AUTO) 302 K/uL (150-450); RED BLOOD CELL COUNT(AUTO) 3.97 MIL/uL (4.0-5.2); WHITE BLOOD COUNT (AUTO) 14.5 K/uL (4.3-11.0)
[2023-08-30 07:33] LABS: BASOPHILS % (AUTO) 0.1 % (0.0-2.0); HEMATOCRIT 33 % (33-45); HEMOGLOBIN 10.9 g/dL (11.5-14.8); LYMPHOCYTES # (AUTO) 1.6 K/uL (0.8-4.8); LYMPHOCYTES % (AUTO) 14.1 % (20.0-44.0); MEAN CORPUSCULAR HEMOGLOBIN 29 PG (26.0-33.0); MEAN CORPUSCULAR HGB CONC 33 g/dl (31.0-36.0); MEAN CORPUSCULAR VOLUME 88 fL (82-100); MONOCYTES # (AUTO) 1.1 K/uL (0.1-1.30); MONOCYTES % (AUTO) 10.1 % (2.0-12.0); NEUTROPHILS # (AUTO) 8.5 K/uL (1.8-8.9); NEUTROPHILS % (AUTO) 75.7 % (43.0-81.0); PLATELET COUNT (AUTO) 310 K/uL (150-450); RED BLOOD CELL COUNT(AUTO) 3.76 MIL/uL (4.0-5.2); RED CELL DISTRIBUTION WIDTH 15.3 % (11.5-15.0); WHITE BLOOD COUNT (AUTO) 11.2 K/uL (4.3-11.0)
[2023-08-30 08:00] VITALS: BP 115/66; TEMP 97.9; O2SAT 97
[2023-08-30] MEDS: HYDROCODONE/APAP 5/325MG TABLET PO PRN (15:46)
[2023-08-30 16:00] VITALS: BP 131/74; TEMP 97.5; O2SAT 94
[2023-08-30] MEDS: SIMETHICONE 80 MG TAB.CHEW PO ONE (16:00)
[2023-08-30 20:00] VITALS: BP 135/73; TEMP 98.2; O2SAT 95
[2023-08-30] MEDS: SIMETHICONE 80 MG TAB.CHEW PO PRN (21:42)
[2023-08-31 08:00] VITALS: BP 126/65; TEMP 98.6; O2SAT 94
== END 2023-08-31 14:50 | disposition home or self-care (01) | DRG 743 ==
LOC: DS 09:28 → MED 11:30
PROVIDERS: ADMIT Obstetrics & Gynecology; ATTEND Obstetrics & Gynecology
PROC: 0UT90ZL Resection of Uterus, Supracervical, Open Approach (ICD-10-PCS; principal; 2023-08-29)
PROC: 0UT70ZZ Resection of Bilateral Fallopian Tubes, Open Approach (ICD-10-PCS; 2023-08-29)
DX: D25.1 Intramural leiomyoma of uterus (principal); D25.0 Submucous leiomyoma of uterus; D25.2 Subserosal leiomyoma of uterus; N73.6 Female pelvic peritoneal adhesions (postinfective); N80.03 Adenomyosis of the uterus
CPT/HCPCS: 36415; 80053-TC; 85025-TC; 85730-TC; 86850-TC; 87081-TC; A4223; A6209; G0378; J0690; J1100; J1170; J2250; J2405; J2704; J2765; J3010; J3490; J7030; J7040; J7060

== ENCOUNTER 2023-08-29 16:08 | Inpatient (IN) | payer BC, OTHER ==
[~2023-08-29 16:08] MED LIST changes: +DOCU100C36 PO; +ERGO500093 PO; +FERR325T21 PO; +METO50TA16 PO
== END 2023-08-29 18:59 | disposition still patient (30) | DRG 951 ==
LOC: MED 16:08
PROVIDERS: ADMIT Internal Medicine; ATTEND Obstetrics & Gynecology
DX: Z00.00 Encounter for general adult medical examination without abnormal findings (principal)
CPT/HCPCS: G0378